=== PATIENT | male | born 1990 | race African-American/Black ===

== ENCOUNTER 2019-10-12 12:09 | Emergency (ER) | payer OTHER ==
[2019-10-12 14:11] LABS: Protime INR 1.17
[2019-10-12 14:17] LABS: Absolute Lymphocytes (CBC) 1.2 K/uL (0.7-4.9); Basophils % 0.5 % (0-1.3); Hematocrit 50.1 % (39.6-49.0); Lymphocytes % 21.6 % (15.3-44.8); MPV 7.2 fL (7.6-11.3); RBC Red Blood Cell Count 5.49 M/uL (4.33-5.43)
[2019-10-12 14:41] LABS: ALT/SGPT 17 U/L (12-78); AST/SGOT 13 U/L (15-37); Albumin 4.9 g/dL (3.4-5.0); Alkaline Phosphatase 53 U/L (45-117); BUN Blood Urea Nitrogen 12 mg/dL (7-18); Bicarbonate 30 mmol/L (21-32); Bilirubin Direct 0.2 mg/dL (0-0.2); Bilirubin Total 0.7 mg/dL (0.2-1.0); Glucose Level 127 mg/dL (74-106); Potassium 3.4 mmol/L (3.5-5.1); Protein, Total 8.9 g/dL (6.4-8.2); Sodium Level 139 mmol/L (136-145)
--- NOTE | 2019-10-12 15:12 | ER ---
Nurse's Notes [facility] Name: Yamil Cardona Age: 28 yrs Sex: Male : 1990 Arrival Date: 10/12/2019 Time: 12:14 Bed 6 Private MD: Diagnosis: Manic episode Presentation: 10/11 12:20 Chief complaint: Patient states: "I've accepted the Lord Curtis Corbin as my lord and ss savior. I don't' know what is going on." Mother reports she has noticed since last week patient has been rambling about Curtis Corbin and stating that somebody was following him. Pt states, "a lot of things are just not making sense." Pt denies any suicidal or homicidal ideaions. Coronavirus screen: Proceed with normal triage. Patient denies a cough. Patient denies shortness of breath or difficulty breathing. Patient denies measured and/or subjective temperature greater than 100.4F prior to today's visit. Patient denies travel on a cruise ship or to a country the [facility] currently lists as an affected area. Patient denies contact with known and/or suspected case of COVID-19. Ebola Screen: Patient denies exposure to infectious person. Patient denies travel to an Ebola-affected area in the 21 days before illness onset. Initial Sepsis Screen: Does the patient meet any 2 criteria? No. Patient's initial sepsis screen is negative. Does the patient have a suspected source of infection? No. Patient's initial sepsis screen is negative. Risk Assessment: Do you want to hurt yourself or someone else? Patient reports no desire to harm self or others. Onset of symptoms is unknown. 12:20 Method Of Arrival: Ambulatory ss 12:20 Acuity: AD 3 ss Triage Assessment: 12:20 General: Appears in no apparent distress. comfortable, Behavior is cooperative, bp appropriate for age, anxious. Pain: Denies pain. EENT: No deficits noted. Neuro: Level of Consciousness is awake, alert, obeys commands, Oriented to person, place, time, situation, Appropriate for age Reports [employer]UD[employer] GR[employer]IOS[employer]. Cardiovascular: No deficits noted. Respiratory: No deficits noted. GI: No signs and/or symptoms were reported involving the gastrointestinal system. : No signs and/or symptoms were reported regarding the genitourinary system. Derm: No deficits noted. Musculoskeletal: No deficits noted. Historical: - Allergies: 12:25 Sulfa (Sulfonamide Antibiotics); ss - Home Meds: 12:25 None [Active]; ss - PMHx: 12:25 None; ss - PSHx: 12:25 None; ss - Immunization history:: Adult Immunizations up to date. - Social history:: Smoking status: Patient denies any tobacco usage or history of. Screenin:16 Abuse screen: Denies threats or abuse. Denies injuries from another. Nutritional bp screening: No deficits noted. Tuberculosis screening: No symptoms or risk factors identified. Fall Risk None identified. Assessment: 12:20 General: SEE TRIAGE NOTE. General: PT DENIES SI AND HI. Pain: Denies pain. bp 13:00 Reassessment: PT AND MOTHER ABSENT WHEN PROVIDER ENTERED ROOM. bp 13:14 Reassessment: PT RETRIEVED FROM WAITING ROOM BY MOTHER. bp 13:30 Reassessment: Patient appears in no apparent distress at this time. Patient and/or ca1 family updated on plan of care and expected duration. Pain level reassessed. Patient is alert, oriented x 3, equal unlabored respirations, skin warm/dry/pink. 14:30 Reassessment: Patient appears in no apparent distress at this time. Patient is alert, ca1 oriented x 3, equal unlabored respirations, skin warm/dry/pink. 15:14 Reassessment: UDS unresulted. Called lab to follow up, michelle Mccoy tech said their ca1 machine is broken and it will take 2 hrs at least to fix. Notified provider. Vital Signs: 12:20 BP 134 / 93; Pulse 76; Resp 16; Temp 98.6(TE); Pulse Ox 100% on R/A; Weight 72.57 kg; Height 6 ft. 2 in. (187.96 cm); Pain 0/10; 14:37 BP 130 / 81; Pulse 80; Resp 16 S; Pulse Ox 100% on R/A; ca1 15:14 BP 126 / 83; Pulse 54; Resp 17 S; Pulse Ox 99% on R/A; ca1 12:20 Body Mass Index 20.54 (72.57 kg, 187.96 cm) ED Course: 12:14 Patient arrived in ED. mr 12:25 Triage completed. ss 12:25 Arm band placed on right wrist. ss 12:30 Patient has correct armband on for positive identification. Bed in low position. Call bp light in reach. Side rails up X2. Adult w/ patient. 12:39 Bree Cisneros, RN is Primary Nurse. ca1 12:44 Michael Monahan PA is PHCP. iram 12:44 Bhanu Kern MD is Attending Physician. [facility] 13:48 No provider procedures requiring assistance completed. Initial lab(s) drawn, by de, ca1 sent to lab. Inserted saline lock: 20 gauge in right antecubital area, using aseptic technique. Blood collected. 14:02 Urine collected: clean catch specimen, clear. ca1 15:18 IV discontinued, intact, bleeding controlled, No redness/swelling at site. Pressure ca1 dressing applied. 15:21 Devaughn Pritchett MD is Referral Physician. [facility] Administered Medications: No medications were administered Outcome: 15:12 Discharge ordered by MD. [facility] 15:24 Discharged to home ambulatory, with family. ca1 15:24 Condition: stable 15:24 Discharge instructions given to patient, Instructed on discharge instructions, follow up and referral plans. Demonstrated understanding of instructions, follow-up care. 15:24 Patient left the ED. ca1 Signatures: Michael Monahan PA PA jmm Kiara Wiggins Sweta Rodriguez, RN RN Hector Diego, LUBA RN bp Bree Cisneors, RN RN ca1
--- NOTE | 2019-10-12 15:13 | EDPHYS ---
Physician Documentation [facility] Name: Yamil Cardona Age: 28 yrs Sex: Male : 1990 Arrival Date: 10/12/2019 Time: 12:14 Bed 6 Private MD: ED Physician Bhanu Kern HPI: 10/11 12:47 This 28 yrs old Black Male presents to ER via Ambulatory with complaints of Doesn't jmm Feel Right. 12:47 The patient presents to the emergency department with paranoia. Onset: The jmm symptoms/episode began/occurred gradually, 4 day(s) ago. Associated signs and symptoms: Pertinent positives; paranoia, Pertinent negatives: chest pain, homicidal ideation, suicide ideation. This is a 28 year old male that presents to the ED with complaints of paranioa for the past 4 days with racing thoughts and decreased sleep. Patient is under the impression everybody is out to get him but cannot recall specific events. Patient states he has slept a total of 6 hours over the past 4 days. Patient states he has been diagnosed with bipolar in the past. Patient is not currently taking any medications. Patient denies SI and HI. . Historical: - Allergies: 12:25 Sulfa (Sulfonamide Antibiotics); ss - Home Meds: 12:25 None [Active]; ss - PMHx: 12:25 None; ss - PSHx: 12:25 None; ss - Immunization history:: Adult Immunizations up to date. - Social history:: Smoking status: Patient denies any tobacco usage or history of. ROS: 12:47 Constitutional: Negative for fever, chills, and weight loss, Cardiovascular: Negative jmm for chest pain, palpitations, and edema, Respiratory: Negative for shortness of breath, cough, wheezing, and pleuritic chest pain. 12:47 Skin: Negative for injury, rash, and discoloration. 12:47 MS/extremity: 12:47 Neuro: Positive for 12:47 Psych: Positive for Negative for auditory hallucinations, visual hallucinations, homicidal ideation, suicide gesture, suicidal ideation. 12:47 All other systems are negative. Exam: 12:47 Constitutional: This is a well developed, well nourished patient who is awake, alert, jmm and in no acute distress. Head/Face: atraumatic. Eyes: EOMI, no conjunctival erythema appreciated ENT: Moist Mucus Membranes Neck: Trachea midline, Supple Chest/axilla: Normal chest wall appearance and motion. Cardiovascular: Regular rate and rhythm. No edema appreciated Respiratory: Normal respirations, no respiratory distress appreciated Abdomen/GI: Non distended, soft Back: Normal ROM Skin: General appearance color normal MS/ Extremity: Moves all extremities, no obvious deformities appreciated, no edema noted to the lower extremities Neuro: Awake and alert, normal gait 12:47 Psych: Behavior/mood is pleasant, cooperative, anxious, Affect is calm, Oriented to person, place, time, Patient has no thoughts/intents to harm self or others. Judgement / Insight is Delusions/hallucinations paranoid delusions. Vital Signs: 12:20 BP 134 / 93; Pulse 76; Resp 16; Temp 98.6(TE); Pulse Ox 100% on R/A; Weight 72.57 kg; ss Height 6 ft. 2 in. (187.96 cm); Pain 0/10; 14:37 BP 130 / 81; Pulse 80; Resp 16 S; Pulse Ox 100% on R/A; ca1 15:14 BP 126 / 83; Pulse 54; Resp 17 S; Pulse Ox 99% on R/A; ca1 12:20 Body Mass Index 20.54 (72.57 kg, 187.96 cm) ss MDM: 12:47 Patient medically screened. [facility] 15:06 Data reviewed: vital signs, nurses notes. Counseling: I had a detailed discussion with iram the patient and/or guardian regarding: the historical points, exam findings, and any diagnostic results supporting the discharge/admit diagnosis, the need for outpatient follow up, to return to the emergency department if symptoms worsen or persist or if there are any questions or concerns that arise at home. 16:01 ED course: Patient does not appear to be a danger to himself or others. Patient janelle voluntarily agreed to evaluation. Labs unremarkable. Patient is advised to follow up with pcychiatry and given information for mental health services. Patient and family otherwise given strict return precautions. Understood and agrees with the plan of care. . 10/11 13:28 Order name: Acetaminophen; Complete Time: 14:52 [facility] 10/11 13:28 Order name: Basic Metabolic Panel; Complete Time: 14:52 [facility] 10/11 13:28 Order name: CBC with Diff [facility] 10/11 13:28 Order name: ETOH Level; Complete Time: 14:33 [facility] 10/11 13:28 Order name: Hepatic Function; Complete Time: 14:52 [facility] 10/11 13:28 Order name: PT-INR; Complete Time: 14:52 [facility] 10/11 13:28 Order name: Ptt, Activated; Complete Time: 14:52 [facility] 10/11 13:28 Order name: Salicylate; Complete Time: 14:52 [facility] 10/11 13:28 Order name: Urine Drug Screen [facility] 10/11 13:28 Order name: EKG; Complete Time: 13:29 [facility] 10/11 13:28 Order name: EKG - Nurse/Tech; Complete Time: 14:01 [facility] 10/11 13:28 Order name: IV Saline Lock; Complete Time: 14:05 [facility] 10/11 13:28 Order name: Labs collected and sent; Complete Time: 14:02 [facility] 10/11 14:20 Order name: Urine Dipstick--Ancillary (enter results) 10/11 13:28 Order name: Urine Dipstick-Ancillary (obtain specimen); Complete Time: 14:02 [facility] Administered Medications: No medications were administered Disposition: 16:00 Co-signature as Attending Physician, Bhanu Kern MD I agree with the assessment and [facility] plan of care. Disposition: 10/12/19 15:12 Discharged to Home. Impression: Manic episode. - Condition is Stable. - Discharge Instructions: Bipolar Disorder. - Medication Reconciliation Form, Thank You Letter, Antibiotic Education, Prescription Opioid Use form. - Follow up: Private Physician; When: 2 - 3 days; Reason: Recheck today's complaints, Continuance of care, Re-evaluation by your physician. Follow up: Devaughn Pritchett MD; When: 2 - 3 days; Reason: Recheck today's complaints, Continuance of care, Re-evaluation by your physician. Signatures: Dispatcher [employer] Bhaun Jarvis MD MD cha Mickail, Joel, PA PA jmm Smirch, Shelby, RN RN ss Acob, Cheryl, RN RN ca1 Corrections: (The following items were deleted from the chart) 15:21 15:12 10/12/2019 15:12 Discharged to Home. Impression: Manic episode. Condition is jmm Stable. Forms are Medication Reconciliation Form, Thank You Letter, Antibiotic Education, Prescription Opioid Use. Follow up: Private Physician; When: 2 - 3 days; Reason: Recheck today's complaints, Continuance of care, Re-evaluation by your physician. [facility] 15:24 15:21 10/12/2019 15:12 Discharged to Home. Impression: Manic episode. Condition is ca1 Stable. Discharge Instructions: Bipolar Disorder. Forms are Medication Reconciliation Form, Thank You Letter, Antibiotic Education, Prescription Opioid Use. Follow up: Private Physician; When: 2 - 3 days; Reason: Recheck today's complaints, Continuance of care, Re-evaluation by your physician. Follow up: Devaughn Pritchett; When: 2 - 3 days; Reason: Recheck today's complaints, Continuance of care, Re-evaluation by your physician. [facility]
[2019-10-12 15:31] VITALS: TEMP 98.6
[2019-10-12 15:33] VITALS: BP 126/83; O2SAT 99
[2019-10-12 16:22] LABS: Barbiturates NEGATIVE (NEGATIVE); Benzodiazepines NEGATIVE (NEGATIVE); Cocaine NEGATIVE (NEGATIVE); METHAMPHETAM NEGATIVE (NEGATIVE); Methadone NEGATIVE (NEGATIVE); Opiates NEGATIVE (NEGATIVE); Phencyclidine NEGATIVE (NEGATIVE); THC Cannibis POSITIVE (NEGATIVE)
[2019-10-12 16:46] LABS: Platelet Estimate ADEQ; Urine White Blood Cell Casts OK
[2019-10-12 16:47] LABS: Blood Morphology Comment NOT SEEN (NOT SEEN)
[2019-10-12 18:24] LABS: Urine Blood NEGATIVE (NEG); Urine Glucose NEGATIVE (NEG); Urine Protein 1+ (NEG)
--- NOTE | 2019-10-13 12:19 | EKG ---
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
== END 2019-10-12 15:24 | disposition home or self-care (01) ==
LOC: ER 12:09
DX: F30.9 Manic episode, unspecified (principal); Z88.2 Allergy status to sulfonamides
CPT/HCPCS: 36415; 80048; 80076; 80307; 80320; 80329; 81003; 85025; 85610; 85730; 93005; 99283